=== PATIENT | female | born 1960 | race Caucasian/White ===

== ENCOUNTER 2025-10-01 13:04 | Emergency (ER) | payer MEDICARE, SELFPAY ==
[2025-10-01 13:06] VITALS: BP 146/79; PULSE 77; RESP 18; TEMP 36.6; O2SAT 96
--- OUTSIDE RECORDS SUMMARY | 2025-10-01 13:19 | XMS_ITS | Clinical Summary ---
Author Organization [facility] Address [address] [place] [address] Care Team Providers Care Special Day Class Teacher Name Role Phone Unavailable Primary Care Provider Unavailabl e Medications travoprost (TRAVATAN Z) 0.004 % solutionIndicatio ns:Primary open angle glaucoma (POAG) of both eyes, indeterminate stage Administer 1 Drop in both eyes daily at bedtime. 2.5 mL 12 09/10/20 19 Active timolol hemihydrate (BETIMOL) 0.5% solutionIndicatio ns:Primary open angle glaucoma (POAG) of both eyes, indeterminate stage Administer 1 Drop in both eyes 2 times daily. To the operative/affect ed eye. 5 mL 3 09/10/20 19 Active netarsudil (RHOPRESSA) 0.02 % DropsIndications: Primary open angle glaucoma (POAG) of both eyes, indeterminate stage Administer 1 Drop in both eyes daily at bedtime. 2.5 mL 3 09/10/20 19 Active dorzolamide (TRUSOPT) 2 % solution Administer 1 Drop in both eyes 2 times daily. 5 mL 11 01/09/20 20 Active travoprost (TRAVATAN Z) 0.004 % solution Administer 1 Drop in both eyes daily at bedtime. 2.5 mL 11 01/09/20 20 Active olopatadine (Pazeo) 0.7 % Drops 1 Drop by Ophthalmic route daily. 5 mL 11 01/19/20 21 Active Rocklatan 0.02-0.005 % Drops INSTILL 1 DROP IN EACH EYE ONCE DAILY AT BEDTIME 2.5 mL 11 02/02/20 21 Active brimonidine (ALPHAGAN P) 0.15 % solutionIndicatio ns:Primary open angle glaucoma (POAG) of both eyes, indeterminate stage Administer 1 Drop in right eye 2 times daily. 10 mL 7 02/09/20 21 Active netarsudiL (Rhopressa) 0.02 % Drops Administer 1 Drop in right eye daily at bedtime. BOTH EYES 2.5 mL 11 02/09/20 21 Active dorzolamide (TRUSOPT) 2 % solutionIndicatio ns:Primary open angle glaucoma (POAG) of both eyes, indeterminate stage Administer 1 Drop in both eyes 2 times daily. Administer in affected eye 10 mL 7 02/09/20 Active timoloL maleate (TIMOPTIC) 0.5% solution Administer 1 Drop in right eye daily in the morning. 5 mL 11 02/09/20 Active latanoprost (XALATAN) 0.005 % solution Administer 1 Drop in both eyes daily at bedtime. 2.5 mL 11 02/09/20 21 Active OTHER PREDNISOLONE 1%/ GATIFLOXACIN 0.5%/ BROMFENAC 0.07%. 1 drop to operative eye(s) 3 times daily for 24 days. 3.5 mL 1 04/12/20 Active Active Problems Problem Noted Date Diagnosed Date Dermatochalasis of both upper eyelids 09/10/2019 Family History Medical History Relation Name Comments Cancer Father Cancer Mother Relation Name Status Comments Father Mother Social History Tobacco Use Types Packs/Day Years Used Date Smoking Tobacco: Former Cigarettes Q uit: 1991 Smokeless Tobacco: Never Comments Unknown Sex and Gender Information Value Date Recorded Sex Assigned at Not on file Legal Sex Female 1:31 PM CDT Gender Identity Not on file Sexual Orientation Not on file Last Filed Vital Signs Vital Sign Reading Time Taken Comments Blood Pressure 120/80 09/10/2019 10:30 AM CDT Pulse - - Temperature - - Respiratory Rate - - Oxygen Saturation - - Inhaled Oxygen Concentration - - Weight 158.8 kg (350 lb) 01/09/2020 8:21 AM ENERGY ANALYST Height 177.8 cm (5' 10 ) 01/09/2020 8:21 AM ENERGY ANALYST Body Mass Index 50.22 01/09/2020 8:21 AM ENERGY ANALYST Plan of Treatment Health Maintenance Due Date Last Done Comments DTAP/TDAP/TD VACCINES (1 - Tdap) 1978 BREAST CANCER SCREENING 1999 COLORECTAL SCREENING 2004 Colorectal Cancer Screening 2004 FIT-DNA Q 3 years 2004 FIT/FOBT Q 1 year 2004 Flex Sig/CT Colonography Q 5 years 2004 PNEUMOCOCCAL VACCINE 50+ YEARS (1 of 1 - PCV) 12/28/19 10 ZOSTER VACCINE (1 of 2) 2009 OSTEOPOROSIS SCREENING 2024 INFLUENZA VACCINE (#1) 2025 RSV VACCINE (60+ or ) (1 - 1-dose 75+ series) 2034 [facility]
--- OUTSIDE RECORDS SUMMARY | 2025-10-01 13:19 | XMS_ITS | Encounter Summary ---
Author Organization [facility] Address [address] [place] [address] Care Team Providers Care Furniture Refinisher Name Role Phone oJse Herr MD Primary Care Provider [phone] Reason for Visit * Reason Comments Med Refill Encounter Details Date Type Department Care Team (Late st Contact Info) Description 09/27/[address] [facility] Ophthalmology [address] [place] [address] Oc Diego MD [address] [place] [address] Primary open angle glaucoma (POAG) of right eye, severe stage; Primary open angle glaucoma (POAG) of left eye, moderate stage Social History Tobacco Use Types Packs/Day Years Used Date Smoking Tobacco: Former Cigarettes 3 15 0 11/19/1976 - 11/19/1991 Passive Smoke Exposure: Past Smokeless Tobacco: Never Alcohol Use Standard Drinks/Week Comments Never 0 (1 standard drink = 0.6 oz pur e alcohol) Feeling Safe Answer Date Recorded Are you in a relationship wi th someone who hurts you emotionally and/or physically? No 09/22/2025 Comments No Sex and Gender Information Value Date Recorded Sex Assigned at Not on file Legal Sex Female 11:27 PM IMPREGNATOR OPERATOR Gender Identity Not on file Sexual Orientation Not on file documented as of this encounter Plan of Treatment Upcoming Encounters Date Type Department Care Team (Late st Contact Info) Description 10/09/2025 2:20 PM IMPREGNATOR OPERATOR Office Visit [facility] Medicine [place] [id number] [address] Constance Elliott, SUPERVISOR FILM PROCESSING [address] [phone] 10/12/2025 12:25 PM IMPREGNATOR OPERATOR Appointment [facility] Procedures [place] [address] [place] [address] Pauline Velasquez, [address] [place] [address] 04/07/2026 8:00 AM CDT Procedure visit [facility] Ophthalmology [place] [address] [address] 04/07/2026 8:30 AM CDT Office Visit [facility] Ophthalmology [place] [address] [address] Oc Diego MD [address] [address] 06/02/2026 9:20 AM CDT Office Visit [facility] [address] [place] [phone] Emily Preston MD [address] [place] [phone] Kristi Jang PA NO ADDRESS ON FILE documented as of this encounter Visit Diagnoses Diagnosis Primary open angle glaucoma (POAG) of right eye, severe stage Primary open angle glaucoma (POAG) of left eye, moderate stage documented in this encounter Care Teams Furniture Refinisher Relationship Specialty Start Date End Date Jose Herr MD [address] [place] [phone] PCP - General Family Practice 08/09/24 documented as of this encounter
--- OUTSIDE RECORDS SUMMARY | 2025-10-01 13:19 | XMS_ITS | Encounter Summary ---
Author Organization [facility] Address [address] [place] [address] Care Team Providers Care Assistant [employer] Name Role Phone Jose Herr MD Primary Care Provider [phone] Reason for Visit * Reason Comments Information Encounter Details Date Type Department Care Team ([facility] st Contact Info) Description 09/23/2025 Telephone [facility] Medicine [address] [address] Jose Herr MD [address] [place] [phone] Information Social History Tobacco Use Types Packs/Day Years [...] on file Legal Sex Female 11:27 PM ETCHER ELECTROLYTIC Gender Identity Not on file Sexual Orientation Not on file documented as of this encounter Miscellaneous Notes * Telephone Encounter - Óscar Mckeon - 09/23/2025 1:34 PM CST Copied from [facility] #[id number]. Topic: Medication Request >> Sep 23, 2025 1:33 PM Óscar Sanchez wrote: Pharmacy Calling: [facility] Contact Name: [facility] Number: [phone] Medication: Sent Fax Call Notes: Caller has questions concerning a prescription. Sending fax for medication. Is the patient there at the pharmacy waiting to fill a prescription? No Is there an encounter open? No ER ELECTROLYTIC documented in this encounter Plan of Treatment Upcoming Encounters Date Type Department Care Team (Late st Contact Info) Description 10/09/2025 2:20 PM ETCHER ELECTROLYTIC Office Visit [facility] Medicine [place] [address] [address] Constance Elliott, ELECTRONIC CALIBRATION TECHNICIAN [address] [place] [address] 10/12/2025 12:25 PM ETCHER ELECTROLYTIC Appointment [facility] Pain [facility] Procedures [place] [address] [place] [address] Pauline Velasquez, [address] [address] 04/07/2026 8:00 AM CDT Procedure visit [facility] Ophthalmology [place] [address] [address] 04/07/2026 8:30 AM CDT Office Visit [facility] Ophthalmology [place] [address] [address] Oc Diego MD [address] [phone] 06/02/2026 9:20 AM CDT Office Visit [facility] [address] [facility] [address] [place] [phone] Emily Preston MD [address] [facility] [address] [place] [phone] Kristi Jang PA NO ADDRESS ON FILE documented as of this encounter Visit Diagnoses Not on filedocumented in this encounter Care Teams Assistant [employer] Relationship Specialty Start Date End Date Jose Herr MD [address] [place] [phone] PCP - General Family Practice 08/09/24 documented as of this encounter
--- OUTSIDE RECORDS SUMMARY | 2025-10-01 13:19 | XMS_ITS | Clinical Summary ---
Author Organization [facility] tone Address [facility] [place] [address] Care Team Providers Care Telephone Clerk Name Role Phone Jose Herr MD Primary Care Provider [phone] Allergies Active Allergy Reactions Criticality Noted Date Comments Alcohol Other (See Comments) 05/18/2021 Throat closes Egg White Anaphylaxis High 08/12/2021 Penicillins Other (See Comments) 05/18/2021 hives Pork Derived (Porcine) Other (See Comments) Cultural Unclassified Drug Other (See Comments) 05/18/20 21 Flu vaccine-hives Medications lancets Check blood sugar 1-2 x daily as directed. 100 Each 11 12/06/19 22 Active cpap medical deviceIndicatio ns:GUZMAN (obstructive sleep apnea) REPAP Auto CPAP at a pressure setting of 11-15 cm/H2O with heated humidifier, nasal and headgear A7034,A7035 1/6mo, mask only A7034 1/3mo, cushion A7032 2/mo. Also supply heated tubing A4604 1/3mo,water chamber A7046 1/6mo,filter disp A7038 2/mo,Reusable filter A7039 1/6mo, Chin strap A7036 a/6mo MAURICIO 99mo DX: GUZMAN (G47.33). 1 Each 01/15/20 22 Active albuterol sulfate 90 mcg/Actuation inhaler Take 2 Puffs by inhalation every 6 hours as needed for Shortness of Breath or Wheezing. 8.5 Gram 2 11/17/20 22 Active blood sugar diagnostic Strip Check blood sugar 1-2 x daily as directed. 200 Each 8 12/27/19 23 Active triamcinolone acetonide (KENALOG) 0.1 % Cream Apply to affected area 2 times daily. 45 Gram 3 05/25/20 23 Active Additional Information Patient taking differently:TopicalDAILY PRN, Reported on 09/22/2025 cholecalciferol 1,250 mcg (50,000 unit) Capsule Take 1 Capsule (50,000 Units) by mouth every 7 days. 13 Capsule 3 05/25/20 23 Active acetaminophen (TYLENOL) 325 mg tablet Take 325 mg by mouth every 4 hours as needed for Pain. Active glipiZIDE (GLUCOTROL XL) 10 mg Extended Release 24 hour tabletIndicatio ns:Type 2 diabetes mellitus with diabetic polyneuropathy, without long-term current use of insulin (CMS/HCC) Take 1 Tablet (10 mg) by mouth daily with breakfast. DIABETES. E11.42 100 Tablet 3 10/24/20 24 Active apixaban (ELIQUIS) 5 mg tabletIndicatio ns:Longstanding persistent atrial fibrillation (CMS/HCC) Take 1 Tablet (5 mg) by mouth 2 times daily. 180 Tablet 3 01/09/20 25 Active dilTIAZem (CARDIZEM CD, CARTIA XT) 300 mg Controlled Delivery 24 hour capsuleIndicati ons:Longstandin g persistent atrial fibrillation (CMS/HCC),Palpi tations Take 1 Capsule (300 mg) by mouth daily. 100 Capsule 3 01/23/20 25 Active metFORMIN (GLUCOPHAGE) 500 mg tabletIndicatio ns:Type 2 diabetes mellitus with diabetic polyneuropathy, without long-term current use of insulin (CMS/HCC) Take 1 Tablet (500 mg) by mouth 2 times daily with meals. 200 Tablet 3 01/24/20 25 Active furosemide (LASIX) 20 mg tabletIndicatio ns:Swelling Take 1 Tablet (20 mg) by mouth 2 times daily. Take 1-2 tablets daily as needed for swelling 200 Tablet 3 01/28/20 25 Active gabapentin (NEURONTIN) 300 mg capsuleIndicati ons:Bilateral sciatica TAKE 1 CAPSULE BY MOUTH THREE TIMES DAILY 270 Capsule 1 03/06/20 25 Active Additional Information Patient taking differently:300 mg OralDAILY PRN, Reported on 09/22/2025 latanoprost (XALATAN) 0.005 % solutionIndicat ions:Primary open angle glaucoma (POAG) of right eye, severe stage Administer 1 Drop in right eye daily at bedtime. 2.5 mL 6 04/07/20 25 Active moxifloxacin (VIGAMOX) 0.5 % solution Administer 1 Drop in left eye 4 times daily. To the operative eye. 3 mL 04/07/20 25 Active Blood-Glucose Meter KitIndications: Type 2 diabetes mellitus with hyperglycemia, without long-term current use of insulin ([facility]) Kit with enough supplies to check blood glucose three times daily. 1 Kit 04/08/20 25 Active baclofen (LIORESAL) 5 mg tabletIndicatio ns:Facet arthritis of lumbar region,Lumbar radiculitis,Lum bar stenosis with neurogenic claudication TAKE 1 TABLET BY MOUTH THREE TIMES DAILY NEEDED FOR PAIN 90 Tablet 09/08/20 25 Active meloxicam (MOBIC) 15 mg tablet Take 1 Tablet by mouth daily. 07/14/20 25 Active timoloL maleate (TIMOPTIC) 0.5% solutionIndicat ions:Primary open angle glaucoma (POAG) of right eye, severe stage,Primary open angle glaucoma (POAG) of left eye, moderate stage INSTILL 1 DROP INTO EACH EYE ONCE DAILY 5 mL 09/27/20 25 Active baclofen (LIORESAL) 5 mg tabletIndicatio ns:Facet arthritis of lumbar region,Lumbar radiculitis,Lum bar stenosis with neurogenic claudication Take 1 Tablet (5 mg) by mouth 3 times daily as needed for Pain. 90 Tablet 1 07/14/20 25 025 Discontinued timoloL maleate (TIMOPTIC) 0.5% solutionIndicat ions:Primary open angle glaucoma (POAG) of right eye, severe stage,Primary open angle glaucoma (POAG) of left eye, moderate stage INSTILL 1 DROP INTO EACH EYE ONCE DAILY 5 mL 08/21/20 25 025 Discontinued Hospital, Clinic, or Other Facility Administered Medication Ordered Dose Route Frequency Start Date End Date Status cyclopentolate-tropica mide-phenylephrine (MYDRIATIC3) 1-1-2.5% ophthalmic solution 1 DropIndications:Combin ed forms of age-related cataract of left eye,Primary open angle glaucoma (POAG) of left eye, moderate stage 1 Drop Left Eye ONE TIME ONLY 12/08/2022 Active Active Problems Problem Noted Date Diagnosed Date Primary insomnia 04/08/2025 Chronic bilateral low back pain with right-sided sciatica 05/05/2024 Sacroiliitis, not elsewhere classified Statin declined 02/05/2024 Type 2 diabetes mellitus wit h hyperglycemia, without long-term current use of insulin, 01/202402/05/2024 Aortic atherosclerosis, noted on x-ray May 2023 . 06/17/2023 Acquired absence of both cervix and uterus 05/25 Chronic anticoagulation 02/08/2023 Type 2 diabetes mellitus with diabetic polyneuro alesia 07/10/2021 Longstanding persistent atrial fibrillation 06/20 Morbid obesity with BMI of 50.0-59.9, adult 06/20 GUZMAN (obstructive sleep apnea) 07/08/2021 Dermatochalasis of both upper eyelids 09/10/2019 Resolved Problems Problem Noted Date Diagnosed Date Resolved Date Suspected COVID-19 virus infection 07/08/2021 08/12/2021 Atypical pneumonia 07/08/2021 Hypokalemia 07/08/2021 04/08/2025 Hypomagnesemia 07/08/2021 04/08/2025 Hyperglycemia-Diabetes suspect 07/08/2021 08/12/2021 Encounters Date Type Department Care Team Description 09/29/2025 [facility] [address] [place] [id number] Pauline Velasquez, Insurance Coverage 09/29/2025 [facility] [address] [place] [address] Pualine Velasquez, Insurance Coverage 09/27/2025 [facility] [address] [place] [address] Oc Diego MD Primary open angle glaucoma (POAG) of right eye, severe stage; Primary open angle glaucoma (POAG) of left eye, moderate stage 09/23/[address] [address] Jose Herr MD Information 09/22/2025 12:48 PM EPIC KALEIDOSCOPE ANALYST - 09/22/2025 11:59 PM EPIC KALEIDOSCOPE ANALYST Hospital Encounter [facility] [place] [address] [place] [phone] Pauline Velasquez, DO Discharge Disposition: Home or Self Care 09/22/2025 12:01 PM EPIC KALEIDOSCOPE ANALYST - 09/22/2025 11:59 PM EPIC KALEIDOSCOPE ANALYST [facility] [place] [address] [facility] [place] [address] Pauline Velasquez, DO Discharge Disposition: Home or Self Care 09/05/2025 [facility] [address] [address] [place] [address] Carolina Louis FNP Facet arthritis of lumbar region; Lumbar radiculitis; Lumbar stenosis with neurogenic claudication 09/02/2025 [facility]phone [facility] [place] [address] [address] Jose Herr MD Provider Call 08/21/2025 [facility] [address] [place] [address] Oc Diego MD Primary open angle glaucoma (POAG) of right eye, severe stage; Primary open angle glaucoma (POAG) of left eye, moderate stage 08/04/2025 External Device Data [facility] ABSTRACTION Provider, Abstract 07/28/2025 3:40 PM CDT - 07/28/2025 11:59 PM CDT Hospital Encounter [facility] [place] [address] [place] [address] Carolina Louis FNP Discharge Disposition: Home or Self Care 07/28/2025 2:35 PM CDT - 07/28/2025 11:59 PM CDT Hospital Encounter [facility] [place] [address] [place] [phone] Pauline Velasquez, Discharge Disposition: Home or Self Care 07/17/2025 [facility]ill [facility] [address] [place] [address] Oc Diego MD Primary open angle glaucoma (POAG) of right eye, severe stage; Primary open angle glaucoma (POAG) of left eye, moderate stage 07/14/2025 12:20 PM CDT [facility] Visit [facility] [address] [place] [address] Carolina Louis FNP Facet arthritis of lumbar region (Primary Dx); Lumbar radiculitis; Lumbar stenosis with neurogenic claudication; GUZMAN (obstructive sleep apnea); Morbid obesity with BMI of 50.0-59.9, adult ([facility]); Type 2 diabetes mellitus with diabetic polyneuropathy, unspecified whether assistant terminal manager insulin use ([facility]) from Last 3 Months Immunizations Immunization Administration Dates Next Due (ADACEL/BOOSTRIX)(10 YR UP) TDAP VACCINE, 0.5ML, IM 04/19/2013 Family History Medical History Relation Name Comments Cancer Father Cancer Mother Breast Cancer Neg Hx Relation Name Status Comments Father Mother Social History Tobacco Use Types Packs/Day Years Used Date Smoking Tobacco: Former Cigarettes 3 15 0 11/19/1976 - 11/19/1991 Passive Smoke Exposure: Past Smokeless Tobacco: Never Tobacco Cessation:Counseling Given: Not Answered Alcohol Use Standard Drinks/Week Comments Never 0 (1 standard drink = 0.6 oz pur e alcohol) Feeling Safe Answer Date Recorded Are you in a relationship wi th someone who hurts you emotionally and/or physically? No 09/22/2025 Comments No Sex and Gender Information Value Date Recorded Sex Assigned at Not on file Legal Sex Female 11:27 PM EPIC KALEIDOSCOPE ANALYST Gender Identity Not on file Sexual Orientation Not on file Last Filed Vital Signs Vital Sign Reading Time Taken Comments Blood Pressure 140/83 09/22/2025 1:04 PM EPIC KALEIDOSCOPE ANALYST Pulse 69 09/22/2025 1:04 PM EPIC KALEIDOSCOPE ANALYST Temperature 35.9 C (96.6 F) 09/22/2025 12:15 PM EPIC KALEIDOSCOPE ANALYST Respiratory Rate 20 09/22/2025 12:1 5 PM EPIC KALEIDOSCOPE ANALYST Oxygen Saturation 97% 09/22/2025 1:04 PM EPIC KALEIDOSCOPE ANALYST Inhaled Oxygen Concentration - - Weight 149.7 kg (330 lb 0.5 oz) 025 12:15 PM EPIC KALEIDOSCOPE ANALYST Height 175.3 cm (5' 9 ) 09/22/2025 12:1 5 PM EPIC KALEIDOSCOPE ANALYST Body Mass Index 48.74 09/22/2025 12:15 PM EPIC KALEIDOSCOPE ANALYST Plan of Treatment Upcoming Encounters Date Type Department Care Team (Late st Contact Info) Description 10/09/2025 2:20 PM EPIC KALEIDOSCOPE ANALYST Office Visit [facility] [place] [address] [address] Constance Elliott, PHOTOGRAPHIC SPECIALIST [address] [place] [address] 10/12/2025 12:25 PM EPIC KALEIDOSCOPE ANALYST Appointment [facility] Procedures [place] [address] [place] [address] Pauline Velasquez, [address] [address] 04/07/2026 8:00 AM CDT Procedure visit [facility] [place] [address] [address] 04/07/2026 8:30 AM CDT Office Visit [facility] [place] [address] [address] Oc Diego MD [address] [address] 06/02/2026 9:20 AM CDT Office Visit [facility] [address] [facility] [address] [place] [address] Emily Preston MD [address] [facility] [address] [place] [address] Kristi Jang PA NO ADDRESS ON FILE Health Maintenance Due Date Last Done Comments FIT/FOBT Q 1 YEAR (AUTO ORDER) 1977 PNEUMOCOCCAL VACCINE 50+ YEA RS (1 of 2 - PCV) 1978 COLORECTAL CANCER SCREENING (AUTO ORDER) 2004 COLORECTAL SCREENING 2004 FIT/FOBT Q 1 year 2004 Flex Sig/CT Colonography Q 5 years 2004 RSV VACCINE (60+ or ) (1 - Risk 50-74 years 1-dose series) 2009 ZOSTER VACCINE (1 of 2) 2009 DTAP/TDAP/TD VACCINES (2 - T d or Tdap) 04/19/2023 04/19/2013 BREAST CANCER SCREENING 06/21/2024 06/21/20 23, 12/29/2021, 11/03/2021 OSTEOPOROSIS SCREENING 2024 LDL CHOLESTEROL ANNUAL 01/23/2025 4, 05/18/2023, 11/14/2022, Additional history exists DIABETES ANNUAL FOOT EXAM 05/05/20252023, 02/05/2024, 09/25/2023, Additional history exists INFLUENZA VACCINE (#1) 2025 DIABETES HBA1C Q 6 MONTHS 10/09/20252024, 12/29/2024, 08/07/2024, Additional history exists DIABETES MICROALBUMIN ANNUAL SCREEN 01/05/2026 01/05/2025, 05/18/2023, 08/12/2021 DIABETES ANNUAL RETINAL EXAM 04/07/2026, 04/07/2025, 06/05/2023, Additional history exists Colorectal Cancer Screening 10/17/2026 FIT-DNA Q 3 years 10/17/2026 10/17/2023 FIT/ DNA Q 3 YEARS (AUTO ORDER) 10/17/2026 3, 10/17/2023 Colorectal Cancer Screening (AUTO ORDER) 10/17/2028 FLEX SIG/CT COLONOGRAPHY Q 5 YEARS (AUTO ORDER) 10/17/2028 10/17/2023, 10/17/2023 [place]) Preventative Visit/Annual Wellness Visit Completed 04/08/2025, 02/05/2024, 09/25/2023 Medical Devices Implanted Type Area Lot Porter Device Identifier Shelf Expiration Date Model / Serial / Lot Lens Io Tecnis 1pc 19.5 [id number] - [id number] Implanted:Qty: 1 on 05/19/2021 by Oc Diego MD at [facility] Right: Eye [employer] 03/13/2025 [id number] / [id number] / Vlv Baerveldt [id number] - [id number] Implanted:Qty: 1 on 12/11/2022 by Oc Diego MD at [facility] Left: Eye P[employer]OHN I 06/08/2024 [id number] / [id number] / [id number] Lens Iol Tecnis Eyhance 18.5 [id number] - [id number] Implanted:Qty: 1 on 12/11/2022 by Oc Diego MD at [facility] Lens Left: Eye [employer] 09/27/2025 [id number] / [id number] / [id number] Graft Split 4.5x9mm Thck Half-Valera [id number] - [id number] Implanted:Qty: 1 on 12/11/2022 by Oc Diego MD at [facility] Tissue Left: Eye CORNEAGEN 04/25/2024 [id number] / [id number] / [id number] Procedures Procedure Name Priority Date/Time Associated Diagnosis Comments XR FLUORO NEEDLE GUIDANCE SPINE Routine 09/22/2025 12:59 PM EPIC KALEIDOSCOPE ANALYST Pain Lumbar facet joint pain XR FLUORO NEEDLE GUIDANCE SPINE Routine 07/28/2025 4:00 PM CDT HEMOGLOBIN A1C Routine 04/08/2025 3:14 PM CDT Type 2 diabetes mellitus with hyperglycemia, without long-term current use of insulin, 01/2024 MICROALBUMIN/CREAT ININE RATIO, RANDOM UR Routine 01/05/2025 3:17 PM EPIC KALEIDOSCOPE ANALYST Type 2 diabetes mellitus with hyperglycemia, without long-term current use of insulin, 01/2024 LIPID PANEL Routine 01/24/2024 9:55 AM EPIC KALEIDOSCOPE ANALYST Type 2 diabetes mellitus with diabetic polyneuropathy, without long-term current use of insulin ([facility]/HCC) Aortic atherosclerosis COLON CANCER SCREEN, STOOL DNA Routine 10/17/2023 4:45 PM EPIC KALEIDOSCOPE ANALYST Screening for colon cancer MAMMO 3D ANETTE SCREEN BILATERAL MOBILE Routine 06/21/2023 12:42 PM CDT Breast cancer screening by mammogram from Last 3 Months or Most Recently Relevant to Health Maintenance Results * XR FLUORO NEEDLE GUIDANCE SPINE (09/22/2025 12:59 PM EPIC KALEIDOSCOPE ANALYST) Only the most recent of2 resultswithin the time period is included. Narrative 09/22/2025 12:59 PM EPIC KALEIDOSCOPE ANALYST Order information only. Exam was auto-finalized. Pauline Velasquez DO DIAGNOSTIC IMAGING ORDERABLE S Final Result * (ABNORMAL) HEMOGLOBIN A1C (04/08/2025 3:14 PM CDT) HEMOGLOBIN A1C 6.7(H) <5.7 % [facility] Comment: For someone without known diabetes, a hemoglobin A1c value of 6.5% or greater indicates that they may have diabetes and this should be confirmed with a follow-up test. For someone with known diabetes, a value <7% indicates that their diabetes is well controlled and a value greater than or equal to 7% indicates suboptimal control. A1c targets should be individualized based on duration of diabetes, age, comorbid conditions, and other considerations. Currently, no consensus exists regarding use of hemoglobin A1c for diagnosis of diabetes for children. ESTIMATED AVERAGE GLUCOSE (MG/DL) 146 mg/dL [facility] ESTIMATED AVERAGE GLUCOSE (MMOL/L) 8.1 mmol/L [facility] Comment: Test Performed at: [facility] [address] [place] [address] Osvaldo Poole MD Blood 04/08/2025 3:14 PM CDT 04/09/2025 1:30 AM CDT us Jose Herr MD CHEMISTRY ORDERABLES Final Resul t Performing Organization Address [facility] Co de Phone Number [facility] [phone] [facility] [address] [facility] [place] [address] * MICROALBUMIN/CREATININE RATIO, RANDOM UR (01/05/2025 3:17 PM EPIC KALEIDOSCOPE ANALYST) Creatinine, Urine 53 20 - 275 mg/dL [facility] MICROALBUMIN, URINE 0.5 See Note: mg/dL [facility] Comment: Reference Range: Reference Range Not established MICROALBUMIN/CREAT RATIO, UR 9 <30 mg/g creat [facility] Comment: The ADA defines abnormalities in albumin excretion as follows: Albuminuria Category Result (mg/g creatinine) Normal to Mildly increased <30 Moderately increased 30-299 Severely increased > OR = 300 The ADA recommends that at least two of three specimens collected within a 3-6 month period be abnormal before considering a patient to be within a diagnostic category. Test Performed at: [facility] [address] [place] [address] Osvaldo Poole MD Urine URINE SPECIMEN OBTAINED BY CLEAN CATCH PROCEDURE / Unknown 01/05/2025 3:17 PM EPIC KALEIDOSCOPE ANALYST 01/06/2025 3:31 AM EPIC KALEIDOSCOPE ANALYST us Constance Elliott PHOTOGRAPHIC SPECIALIST URINE ORDERABLES Chloe l Result Performing Organization Address [facility] Co de Phone Number [facility] [phone] [facility] [address] [place] [address] * LIPID PANEL (01/24/2024 9:55 AM EPIC KALEIDOSCOPE ANALYST) CHOLESTEROL 172 <200 mg/dL [facility] HDL 53 > OR = 50 mg/dL [facility] TRIGLYCERIDE 138 <150 mg/dL [facility] LDL CALCULATED 95 mg/dL (calc) [facility] Comment: Reference range: <100 Desirable range <100 mg/dL for primary prevention; <70 mg/dL for patients with CHD or diabetic patients with > or = 2 CHD risk factors. LDL-C is now calculated using the Hasmukh calculation, which is a validated novel method providing better accuracy than the Friedewald equation in the estimation of LDL-C. Leroy MATHUR et al. RADHA. 2013;310(19): 3656-4569 (http://education.Matchbin/faq/UZC609) CHOL/HDL RATIO 3.2 <5.0 (calc) [facility] TOTAL NON-HDL CHOL(LDL+VLDL) 119 <130 mg/dL (calc) [facility] Comment: For patients with diabetes plus 1 major ASCVD risk factor, treating to a non-HDL-C goal of <100 mg/dL (LDL-C of <70 mg/dL) is considered a therapeutic option. Test Performed at: [facility] [address] [place] [address] Osvaldo Poole MD Blood 01/24/2024 9:55 AM EPIC KALEIDOSCOPE ANALYST 01/25/2024 2:57 AM EPIC KALEIDOSCOPE ANALYST Elizabeth Romero [facility] CHEMISTRY ORDERABLES Final Result [facility] [phone] [facility] [address] [place] [address] * COLON CANCER SCREEN, STOOL DNA (10/17/2023 4:45 PM EPIC KALEIDOSCOPE ANALYST) COLOGUARD RESULT Negative Negative [facility] Comment: NEGATIVE TEST RESULT. A negative Cologuard result indicates a low likelihood that a colorectal cancer (CRC) or advanced adenoma (adenomatous polyps with more advanced pre-malignant features) is present. The chance that a person with a negative Cologuard test has a colorectal cancer is less than 1 in 1500 (negative predictive value >99.9%) or has an advanced adenoma is less than 5.3% (negative predictive value 94.7%). These data are based on a prospective cross-sectional study of 10,000 individuals at average risk for colorectal cancer who were screened with both Cologuard and colonoscopy. (Jolanta Goldberg al, N Engl J Med 2014;370(14):6145-2992) The normal value (reference range) for this assay is negative. COLOGUARD RE-SCREENING RECOMMENDATION: Periodic colorectal cancer screening is an important part of preventive healthcare for asymptomatic individuals at average risk for colorectal cancer. Following a negative Cologuard result, the [place] [employer] and U.S. Multi-Society Task Force screening guidelines recommend a Cologuard re-screening interval of 3 years. References: [place] [employer] Guideline for Colorectal Cancer Screening: https://www.cancer.org/cancer/ynqgt-pnmgks-xvjcqs/tcnjqdtxw-hkdtcfehl-ruclioj/ac s-rec ommendations.html.; Sandeep DK, July HI, Trenton ChenK, Colorectal Cancer Screening: Recommendations for Physicians and Patients from the U.S. Multi-Society Task Force on Colorectal Cancer Screening , Am J Gastroenterology 2017; 112:1834-7664. TEST DESCRIPTION: Composite algorithmic analysis of stool DNA-biomarkers with hemoglobin immunoassay. Quantitative values of individual biomarkers are not reportable and are not associated with individual biomarker result reference ranges. Cologuard is intended for colorectal cancer screening of adults of either sex, 45 years or older, who are at average-risk for colorectal cancer (CRC). Cologuard has been approved for use by the U.S. FDA. The performance of Cologuard was established in a cross sectional study of average-risk adults aged 50-84. Cologuard performance in patients ages 45 to 49 years was estimated by sub-group analysis of near-age groups. Colonoscopies performed for a positive result may find as the most clinically significant lesion: colorectal cancer [4.0%], advanced adenoma (including sessile serrated polyps greater than or equal to 1cm diameter) [20%] or non- advanced adenoma [31%]; or no colorectal neoplasia [45%]. These estimates are derived from a prospective cross-sectional screening study of 10,000 individuals at average risk for colorectal cancer who were screened with both Cologuard and colonoscopy. (Jolanta Wellington, N Engl J Med 2014;370(14):7531-1098.) Cologuard may produce a false negative or false positive result (no colorectal cancer or precancerous polyp present at colonoscopy follow up). A negative Cologuard test result does not guarantee the absence of CRC or advanced adenoma (pre-cancer). The current Cologuard screening interval is every 3 years. ([place] [employer] and U.S. Multi-Society Task Force). Cologuard performance data in a 10,000 patient pivotal study using colonoscopy as the reference method can be accessed at the following location: www.Skaffl/results. Additional description of the Cologuard test process, warnings and precautions can be found at www.cologGreatistrd.com. Stool STOOL SPECIMEN / Unknown 10/17/2023 4:45 PM EPIC KALEIDOSCOPE ANALYST 10/18/2023 5:14 PM EPIC KALEIDOSCOPE ANALYST Elizabeth Romero PHOTOGRAPHIC SPECIALIST BODY FLUIDS AND STOOLS Fin al Result [facility] # [id number] [address] [facility], [address] [place] [address] * MAMMO 3D SCREEN BILATERAL MOBILE (06/21/2023 12:42 PM CDT) Anatomical Region Laterality Modality Breast Bilateral Mammography Impressions 06/30/2023 8:17 AM CDT : No mammographic evidence of malignancy. BI-RADS ASSESSMENT: 1 - Negative RECOMMENDATION: Routine annual screening mammography. Narrative 06/30/2023 8:17 AM CDT EXAM: MAMMO SCRN BILAT 3D ANETTE W OR WO CAD INDICATION: Screening COMPARISON: 12/29/2021 MAMMO DIAG BILAT 3D ANETTE W OR WO CAD and 11/03/2021 MAMMO 3D SCREEN BILATERAL MOBILE BREAST COMPOSITION: There are scattered areas of fibroglandular density. FINDINGS: RIGHT BREAST: There are no suspicious masses, calcifications, or areas of architectural distortion. LEFT BREAST: There are no suspicious masses, calcifications, or areas of architectural distortion. Elizabeth Romero PHOTOGRAPHIC SPECIALIST MAMMO ORDERABLES Final Res ult from Last 3 Months or Most Recently Relevant to Health Maintenance Insurance [facility] [facility] [employer] Advance Directives For more information, please contact: [phone] * Full Code (Latest Code Status on File) Date Activated Date Inactivated Comments 12/11/2022 12:53 PM 12/11/2022 6:34 PM * Full Code Date Activated Date Inactivated Comments 07/08/2021 12:59 PM 07/11/2021 3:46 PM Care Teams Telephone Clerk Relationship Specialty Start Date End Date Jose Herr MD [address] [place] [phone] PCP - General Family Practice 08/09/24
--- OUTSIDE RECORDS SUMMARY | 2025-10-01 13:19 | XMS_ITS | Encounter Summary ---
Author Organization [facility] Address [address] [place] [address] Care Team Providers Care Horticulture/Floriculture Teacher Name Role Phone Jose Herr MD Primary Care Provider [phone] Reason for Visit * Reason Onset Date Comments Insurance Coverage 09/29/2025 Encounter Details Date Type Department Care Team (Late st Contact Info) Description 09/29/2025 Telephone [facility] Pain Management [address] [place] [address] Pauline Velasquez DO [address] [place] [address] Insurance Coverage Social History Tobacco Use Types Packs/Day Years [...] on file Legal Sex Female 11:27 PM UPPER CUTTER OUT Gender Identity Not on file Sexual Orientation Not on file documented as of this encounter Plan of Treatment Upcoming Encounters Date Type Department Care Team (Late st Contact Info) Description 10/09/2025 2:20 PM UPPER CUTTER OUT Office Visit [facility] Family Medicine [place] [address] [address] Constance Elliott FNP [address] [phone] 10/12/2025 12:25 PM UPPER CUTTER OUT Appointment [facility] Pain Management Procedures [place] [address] [place] [address] Pauline Velasquez, [address] [place] [address] 04/07/2026 8:00 AM CDT Procedure visit [facility] Ophthalmology [place] [address] [place] [address] 04/07/2026 8:30 AM CDT Office Visit [facility] Ophthalmology [place] [address] [place] [address] Oc Diego MD [address] [address] 06/02/2026 9:20 AM CDT Office Visit [facility] Cardiology [facility] [address] [place] [address] Emily Preston MD [address] [place] [address] Kristi Jang PA NO ADDRESS ON FILE documented as of this encounter Visit Diagnoses Not on filedocumented in this encounter Care Teams Horticulture/Floriculture Teacher Relationship Specialty Start Date End Date Jose Herr MD [address] [place] [phone] PCP - General Family Practice 08/09/24 documented as of this encounter
--- OUTSIDE RECORDS SUMMARY | 2025-10-01 13:19 | XMS_ITS | Encounter Summary ---
Author Organization [facility] Address [address] [place] [address] Care Team Providers Care Hot Air Furnace Installer Repairer Name Role Phone Jose Herr MD Primary Care Provider [phone] Reason for Visit * Reason Onset Date Comments Insurance Coverage 09/29/2025 Encounter Details Date Type Department Care Team (Late st Contact Info) Description 09/29/2025 Telephone [facility] Pain Management [address] [place] [address] Pauline Velasquez DO [address] [place] [address] Insurance Coverage Social History Tobacco [...] on file Legal Sex Female 11:27 PM FLOOR TECHNICIAN Gender Identity Not on file Sexual Orientation Not on file documented as of this encounter Miscellaneous Notes * Telephone Encounter - Yessica Mendez - 09/29/2025 2:29 PM CST Patient states she would currently rate her pain at 7/10. R TECHNICIAN documented in this encounter Plan of Treatment Upcoming Encounters Date Type Department Care Team (Late st Contact Info) Description 10/09/2025 2:20 PM FLOOR TECHNICIAN Office Visit [facility] Medicine [place] [address] [address] Constance Elliott, BAND BUILDER [address] [address] 10/12/2025 12:25 PM FLOOR TECHNICIAN Appointment [facility] Pain Management Procedures [place] [address] [facility] [place] [address] Pauline Velasquez, DO [address] [address] 04/07/2026 8:00 AM CDT Procedure visit [facility] Ophthalmology [place] [address] [address] 04/07/2026 8:30 AM CDT Office Visit [facility] Ophthalmology [place] [address] [address] Oc Diego MD [address] [address] 06/02/2026 9:20 AM CDT Office Visit [facility] [address] [place] [phone] Emily Preston MD [address] [place] [address] Kristi Jang PA NO ADDRESS ON FILE documented as of this encounter Visit Diagnoses Not on filedocumented in this encounter Care Teams Hot Air Furnace Installer Repairer Relationship Specialty Start Date End Date Jose Herr MD [address] [place] [phone] PCP - General Family Practice 08/09/24 documented as of this encounter
[2025-10-01 13:59] VITALS: BP 166/84; PULSE 75; RESP 18; O2SAT 96
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
[2025-10-01] MEDS: mupirocin oint 22 gm 1 APPLIC TOPICAL (14:22)
[2025-10-01 14:36] LABS: Hematocrit 38.1 % (36-47); Hemoglobin 11.90 g/dL (11.27-16.99); Mean Corpuscular HGB Conc 31.2 g/dL (30-55); Mean Corpuscular Hemoglobin 28.4 pg (27-33); Mean Corpuscular Volume 90.9 fl (85-98); Nucleated Red Blood Cells % 0 %; Platelet Count 255 10^3/cmm (157-399); Red Blood Count 4.19 10^6/uL (3.85-5.65); White Blood Count 8.99 10^3/uL (3.29-11.43)
[2025-10-01 14:54] LABS: Alanine Aminotransferase 14 U/L (0-33); Albumin Level 4.2 g/dL (3.5-5.2); Alkaline Phosphatase 94 U/L (35-105); Anion Gap 16.9 (5-19); Aspartate Amino Transferase 19 U/L (0-32); Blood Urea Nitrogen 17 mg/dL (8-23); Calcium 9.3 mg/dL (8.5-10.5); Carbon Dioxide 24 mmol/L (22-29); Chloride 98 mmol/L (98-107); Globulin 4.6 g/dL (1.3-4.6); Glucose 125 mg/dL (65-115); Osmolality Calculated 283 mOsm/kg (285-295); Potassium 3.9 mmol/L (3.5-5.1); Sodium 135 mmol/L (136-145); Total Protein 8.8 g/dL (6.6-8.7)
[2025-10-01] MEDS: iohexol 350 mg/mL 500 mL Btl (per mL) IV (15:16)
[2025-10-01] MEDS: orphenadrine 30 mg/mL Inj 2 mL IV (16:50)
[2025-10-01] MEDS: HYDROmorphone 0.5 MG/0.5 ML INJ 1 MG IVP (16:50)
[2025-10-01] MEDS: HYDROcodone-acetaminophen 10-325 mg Tablet 2 TAB PO (16:50)
[2025-10-01] MEDS: ondansetron 2 mg/ML SDV 2 mL 4 MG IVP (16:51)
[2025-10-01 17:14] VITALS: BP 157/87; PULSE 73; RESP 18; TEMP 36.7; O2SAT 98
== END 2025-10-01 17:17 | disposition home or self-care (01) ==
PROVIDERS: Emergency Provider Physician Assistant
DX: S80.12XA Contusion of left lower leg, initial encounter (principal); V89.2XXA Person injured in unspecified motor-vehicle accident, traffic, initial encounter; Z79.01 Long term (current) use of anticoagulants; Z79.84 Long term (current) use of oral hypoglycemic drugs
CPT/HCPCS: 36415; 74177; 80053; 85025; 96374; 96375; 99285; J1171; J2360; J2405; J9999